=== PATIENT | male | born 1940 | race Caucasian/White ===

== ENCOUNTER 2018-10-22 05:43 | Emergency (ER) | payer OTHER ==
--- OUTSIDE RECORDS SUMMARY | 2018-10-22 06:01 | XMS REPORT | Clinical Summary ---
:1940 Author Organization [facility] Address [address] [place] [address] Care Team Providers Name Role Phone Debbi Duenas MD Primary Care Provider Allergies Active Allergy Reactions Severity Noted Date Comments No Known Drug Allergies 06/23/2016 Medications Medication Sig Dispensed Refills Start Date End Date Status atorvastatin TK 1 T PO QD 1 07/19/2016 Active (LIPITOR) 20 MG tablet clonIDINE TK 1 T PO BID 0 08/12/2016 Active (CATAPRES) 0.1 MG tablet amIODarone Take 200 mg 0 Active (PACERONE) 200 MG by mouth tablet daily. metFORMIN XR TK 1 T PO QD 3 01/26/2017 Active (GLUCOPHAGE-XR) 500 mg 24 hr tablet metoprolol TK 1 T PO QD 3 02/27/2017 Active succinate XL (TOPROL-XL) 100 mg 24 hr tablet memantine-donepezil TAKE 1 90 each 1 09/08/2017 Active (NAMZARIC) 28-10 mg CAPSULE BY capsule,sprinkle,ER MOUTH EVERY 24hr DAY sertraline (ZOLOFT) Take 1 tablet 90 tablet 1 09/08/2017 Active 100 MG tablet (100 mg total) by mouth once daily. sertraline (ZOLOFT) Take 2 60 tablet 3 11/11/2017 11/11/2018 Active 25 MG tablet tablets (50 mg total) by mouth daily. QUEtiapine Take 4 360 tablet 1 03/09/2018 Active (SEROquel) 25 MG tablets (100 tablet mg total) by mouth nightly. sertraline (ZOLOFT) TAKE 1 TABLET 90 tablet 0 04/14/2018 Active 100 MG tablet BY MOUTH DAILY QUEtiapine Take 1 tablet 30 tablet 1 11/11/2017 11/11/2017 Discontinued (SEROquel) 25 MG (25 mg total) tablet by mouth nightly for 30 days. QUEtiapine TAKE 1 TABLET 90 tablet 1 11/11/2017 03/09/2018 Discontinued (SEROquel) 25 MG BY MOUTH tablet EVERY NIGHT AT BEDTIME Active Problems Problem Noted Date Abdominal pain 06/23/2016 Malignant tumor of prostate 06/23/2016 Memory impairment 06/23/2016 Urge incontinence of urine 06/23/2016 Urinary incontinence 06/23/2016 Encounters Date Type Specialty Care Team Description 04/14/2018 Refill Neurology Liudmila Subramanian MD 04/05/2018 Telephone Neurology Debbi Duenas MD 03/09/2018 Office Visit Neurology Liudmila Subramanian Memory impairment ( Primary Dx); MD Shahla Dementia with behavioral disturbance, unspecified dementia type; Agitation 01/27/2018 Telephone Neurology Liudmila Subramanian MD 01/06/2018 Office Visit Neurology Liudmila Subramanian Memory impairment ( Primary Dx); MD Shahla Dementia with behavioral disturbance, unspecified dementia type 11/11/2017 Office Visit Neurology Liudmila Subramanian Memory impairment ( Primary Dx); MD Shahla Dementia with behavioral disturbance, unspecified dementia type 11/11/2017 Refill Neurology Liudmila Subramanian MD after 10/21/2017 Immunizations Name Dates Previously Given Next Due Pneumococcal Conjugate 13-Valent 10/29/2016 Family History Medical History Relation Name Comments Heart disease Mother Relation Name Status Comments Mother (Age 93) Social History Tobacco Use Types Packs/Day Years Used Date Never Smoker Alcohol Use Drinks/Week oz/Week Comments No Sex Assigned at Date Recorded Not on file Job Start Date Occupation Industry Not on file Not on file Not on file Travel History Travel Start Travel End No recent travel history available. Last Filed Vital Signs Vital Sign Reading Time Taken Blood Pressure 170/71 03/09/2018 10:05 AM CDT Pulse 76 03/09/2018 10:05 AM CDT Temperature - - Respiratory Rate - - Oxygen Saturation - - Inhaled Oxygen Concentration - - Weight 103 kg (227 lb) 11/11/2017 10:30 AM [employer] Height - - Body Mass Index 31 11/11/2017 10:30 AM [employer] Plan of Treatment Health Maintenance Due Date Last Done Comments SHINGLES VACCINES (1 of 2) 1988 PNEUMOCOCCAL POLYSACCHARIDE VACCINE AGE 65 AND OVER 2003 INFLUENZA VACCINE 04/21/2018 PNEUMOCOCCAL-13 Completed 10/29/2016 Results Not on fileafter 10/21/2017 Insurance Payer Benefit Plan / Group Subscriber ID Type Phone Address MEDICARE MEDICARE PART A AND B xxxxxxxxxx Medicare [place], [place] AARP AARP SUPPLEMENT xxxxxxxxxxx Commercial Advance Directives Patient has advance care planning documents on file. For more information, please contact:Juventino Galindo[address] [place] [address]
[2018-10-22 06:23] LABS: Absolute Lymphocytes (CBC) 2.1 K/uL (0.7-4.9); Absolute Monocytes 0.9 K/uL (0.1-1.3); Absolute Neutrophil 2.7 K/uL (1.8-8.0); Basophils % 0.3 % (0-1.3); Eosinophils % 5.7 % (0-4.4); Lymphocytes % 34.7 % (15.3-44.8); MPV 7.9 fL (7.6-11.3); Monocytes % 14.3 % (3.3-12.3); RBC Red Blood Cell Count 4.67 M/uL (4.33-5.43)
[2018-10-22] MEDS ORDERED: NA CHLORIDE 0.9% 1,000 ML ONE (06:29)
[2018-10-22] MEDS ORDERED: ACETAMINOPHEN 500 MG TAB ONE (06:33)
[2018-10-22 06:41] LABS: Protime INR 1.01
[2018-10-22 06:42] LABS: ALT/SGPT 21 U/L (12-78); AST/SGOT 16 U/L (15-37); Albumin 3.7 g/dL (3.4-5.0); Alkaline Phosphatase 67 U/L (45-117); BUN Blood Urea Nitrogen 25 mg/dL (7-18); Bicarbonate 25 mmol/L (21-32); Bilirubin Direct 0.1 mg/dL (0-0.2); Bilirubin Total 0.5 mg/dL (0.2-1.0); Glucose Level 130 mg/dL (74-106); Magnesium 2.4 mg/dL (1.8-2.4); NT PRO-BNP 67 pg/mL (<450); Potassium 4.1 mmol/L (3.5-5.1); Protein, Total 7.6 g/dL (6.4-8.2); Sodium Level 138 mmol/L (136-145); Troponin (Emerg Dept Use Only) < 0.02 ng/mL (0.0-0.045)
--- NOTE | 2018-10-22 08:29 | RAD REPORT ---
EXAM DESCRIPTION: CT - Head C Spine Cap Wo Con - 10/22/2018 8:04 am CLINICAL HISTORY: Dementia, fall, head, neck, chest and abdomen injury COMPARISON: None. TECHNIQUE: Axial [address] head images were obtained. Axial [address] cervical spine images were obtain ed with sagittal and coronal reconstruction images reviewed. Axial 5 mm images of the chest, abdomen and pelvis were obtained. All CT scans are performed using dose optimization technique as appropriate and may include automated exposure control or mA/KV adjustment according to patient size. FINDINGS: No intracranial hemorrhage, mass or edema. No midline shift or abnormal fluid collection. Mastoid air cells and paranasal sinuses are clear. No skull fracture. Patient has underlying moderat e atrophy and chronic ischemic change. Ventricles are in proportion. Dense arterial tree calcificatio ns are present. Cervical bodies are normal in height and alignment. No fracture or acute bone finding.C5-6 disc space narrowing present. Endplate spurs and facet hypertrophic degenerative changes are present scattered throughout the cervical spine. No canal stenosis or critical degree of foraminal stenosis.No preverte bral soft tissue thickening or paraspinal mass.Central canal detail is inherently limited on CT imagi ng. CT chest shows no pneumothorax, pulmonary contusion or pleural fluid collection. No mediastinal hem atoma and the aorta and pulmonary arteries are unremarkable. No chest will mass or abnormal axillary finding. No displaced rib fracture or other significant bony finding. CT abdomen and pelvis show no injury to solid abdominal viscera. No acute gallbladder or biliary tree finding. Punctate gallstones layer in the dependent portion of the gallbladder. No bowel injury or s ignificant finding. No free air, free fluid or abnormal stranding. No hernia, mass or bulky lymphaden opathy. No urinary bladder abnormality. A 7.5 centimeter upper pole right renal cyst is present. A 2 .5 centimeter cyst is present in the central right kidney. Prostatectomy surgical changes are present. Ing inguinal hernia surgical repairs are noted. There is some remnant right inguinal fat filled hernia. Disc and bony degenerative changes are present. No compression fracture or pathologic bone process se en. No soft tissue mass or hematoma. IMPRESSION: Atrophy and chronic ischemic changes with no acute intracranial finding. Cervical spine degenerative change with no acute finding. Central canal detail is inherently limited. No significant CT Chest finding. No significant CT Abdomen and Pelvis finding. Scattered bony degenerative change without an acute bone process identifiable.
--- NOTE | 2018-10-22 08:38 | ER ---
Nurse's Notes [facility] Name: Daniel Granados Age: 78 yrs Sex: Male : 1940 Arrival Date: 10/22/2018 Time: 05:44 Bed 19 Private MD: Diagnosis: Fall due to bumping against object;Dementia in other diseases classified elsewhere;Unspecified kidney failure Presentation: 10/22 05:51 Presenting complaint: EMS states: they were toned out for report of pt found lying on bb the ground unknown amount of time and pt shaking, pt is A\T\O x 1 which is his baseline. Transition of care: patient was received from another setting of care (long-term care facility), [facility]. Onset of symptoms was October 22, 2018. Risk Assessment: Do you want to hurt yourself or someone else? Patient reports no desire to harm self or others. Initial Sepsis Screen: Does the patient meet any 2 criteria? No. Patient's initial sepsis screen is negative. Does the patient have a suspected source of infection? No. Patient's initial sepsis screen is negative. Care prior to arrival: None. 05:51 Method Of Arrival: EMS: [facility] 05:51 Acuity: MIS 2 06:06 Mechanism of Injury: possible fall injury. Trauma event details: Injury occurred in the [facility], Injury occurred: in an institution. Injury occurred: October 22, 2018. Triage Assessment: 06:00 General: Appears in no apparent distress. uncomfortable, Behavior is calm, appropriate cc3 for age. Pain: Complains of pain in generalized. EENT: No signs and/or symptoms were reported regarding the EENT system. Neuro: Level of Consciousness is awake, alert. Cardiovascular: Patient's skin is warm and dry. Respiratory: Airway is patent Respiratory effort is even, unlabored, Respiratory pattern is regular, symmetrical. GI: Abdomen is round obese. : No signs and/or symptoms were reported regarding the genitourinary system. Derm: Wound noted left upper arm Bruising that is dark purple, on right midline antecubital area from EMS attempted IV cannulation. Musculoskeletal: Circulation, motion, and sensation intact. Range of motion: limited in lower limbs. Trauma Activation: Alert Physician: ED Physician; Name: Henrique; Notified At: 05:42; Arrived At: 05:42 Physician: General Surgeon; Name: ; Notified At: 05:42; Arrived At: Physician: Radiology; Name: Court; Notified At: 05:42; Arrived At: 05:45 Physician: Respiratory; Name: ; Notified At: 05:42; Arrived At: Physician: Lab; Name: ; Notified At: 05:42; Arrived At: Historical: - Allergies: 06:01 No Known Allergies; bb - Home Meds: 06:01 cyanocobalamin (vitamin B-12) 1,000 mcg/mL injection soln 1 mL once moly [Active]; bb amlodipine 10 mg tab 1 tab once daily [Active]; divalproex 500 mg oral TbEC 1 tab 2 times per day [Active]; fluoxetine 20 mg Oral cap 1 cap once daily [Active]; folic acid 1 mg oral tab 1 tab once daily [Active]; vit B-1 [Active]; Healthy Eyes SuperVision [id number],320-226-200 zrob-di-degm oral cap daily [Active]; lisinopril 10 mg Oral tab 1 tab once daily [Active]; memantine 10 mg oral tab 1 tab 2 times per day [Active]; quetiapine 100 mg oral tab 1 tab nightly [Active]; clonidine HCl 0.1 mg Oral tab 1 tab 2 times per day [Active]; lorazepam 1 mg Oral tab 1 tab four times a day [Active]; - PMHx: 06:01 Alzheimers; Dementia; Depression; Hypertension; bb - Immunization history:: Adult Immunizations unknown. - Social history:: Smoking status: unknown. - Ebola Screening: : No symptoms or risks identified at this time. - Family history:: not pertinent. Screenin:00 Abuse screen: Denies threats or abuse. Denies injuries from another. Nutritional cc3 screening: No deficits noted. Tuberculosis screening: No symptoms or risk factors identified. Fall Risk Ambulatory Aid- None/Bed Rest/Nurse Assist (0 pts). Gait- Weak (10 pts.). Mental Status- Overestimates/Forgets Limitations (15 pts.). Primary Survey: 06:03 NO uncontrolled hemorrhage observed. A: The patient is alert. Airway: patent. bb Breathing/Chest: Respiratory pattern: regular, Respiratory effort: spontaneous, unlabored. Circulation: Heart tones present. Disability Alert. Exposure/Environment: There is no evidence of uncontrolled external bleeding. A warming method has been applied: A warm blanket has been provided to the patient. 06:15 Reassessment Airway Airway Patent Breathing/Chest Respiratory pattern Regular cc3 Respiratory effort Spontaneous Unlabored Circulation Heart tones Present Disability Alert. Secondary Survey: 06:03 HEENT: No deficits noted. Gastrointestinal: No deficits noted. Musculoskeletal: bb Capillary refill < 3 seconds. Assessment: 06:00 General: see triage assessment. cc3 06:45 Reassessment: Patient appears in no apparent distress at this time. Patient and/or cc3 family updated on plan of care and expected duration. Pain level reassessed. 07:10 Reassessment: Patient appears in no apparent distress at this time. Patient and/or em family updated on plan of care and expected duration. Pain level reassessed. family at bedside, pending results for patient, pt awake oriented to self, denies pain at this time. 08:41 Reassessment: pt changed and cleaned, new gown placed. em 08:45 Reassessment: I agree with previous assessment. hb 09:05 Reassessment: Patient appears in no apparent distress at this time. report called to em Chace Christine, will arrange transport. 09:18 Reassessment: Patient appears in no apparent distress at this time. assisted pt into em wheelchair and transported by Chace Christine. Vital Signs: 06:01 BP 149 / 66; Pulse 71; Resp 18 S; Temp 97.6(O); Pulse Ox 98% on R/A; Weight 90.72 kg bb (R); Height 6 ft. 3 in. (190.50 cm) (R); 07:10 BP 136 / 71; Pulse 66; Resp 20; Pulse Ox 95% on R/A; em 08:08 BP 143 / 86; Pulse 63; Resp 20; Temp 97.8(O); Pulse Ox 96% on R/A; 5 06:01 Body Mass Index 25.00 (90.72 kg, 190.50 cm) bb Saxton Coma Score: 06:03 Eye Response: spontaneous(4). Verbal Response: oriented(5). Motor Response: obeys bb commands(6). Total: 15. Trauma Score (Adult): 06:03 Eye Response: spontaneous(1); Verbal Response: oriented(1); Motor Response: obeys bb commands(2); Systolic BP: > 89 mm Hg(4); Respiratory Rate: 10 to 29 per min(4); Saxton Score: 15; Trauma Score: 12 ED Course: 05:44 Patient arrived in ED. al2 05:44 Doron Duenas MD is Attending Physician. [facility] 05:53 Triage completed. bb 05:54 Sarah Mcdonald is Primary Nurse. cc3 06:01 Arm band placed on Patient placed in an exam room, on a stretcher, on pulse oximetry. bb 06:03 Patient has correct armband on for positive identification. Call light in reach. Side bb rails up X2. 06:03 Patient maintains SpO2 saturation greater than 95% on room air. bb 06:09 Thermoregulation: warm blanket given to patient. bb 06:10 Inserted saline lock: 20 gauge in right antecubital area, using aseptic technique. cc3 Blood collected. 06:13 X-ray completed. Portable x-ray completed in exam room. Patient tolerated procedure kw well. 06:15 XRAY Chest (1 view) In Process Unspecified. EDMS 07:00 Report given to BRIAN Huertas. cc3 07:14 Aleksandar Sarah LVN is Primary Nurse. em 08:05 CT Traumagram (Head C Spine CAP wo con) In Process Unspecified. EDMS 09:08 No provider procedures requiring assistance completed. IV discontinued, intact, em bleeding controlled, No redness/swelling at site. Pressure dressing applied. Administered Medications: 06:30 Drug: NS 0.9% 1000 ml Route: IV; Rate: 125 ml/hr; Site: right antecubital; cc3 09:00 Follow up: IV Status: Order to discontinue infusion; IV Intake: 200ml em 06:45 Not Given (patient's daughter refused and wants stronger pain medicine): Tylenol 1000 cc3 mg PO once Intake: 06:03 PO: 0ml; Total: 0ml. bb 09:00 IV: 200ml; Total: 200ml. em Outcome: 08:38 Discharge ordered by . kb 09:08 Discharged to [facility]. em 09:08 Condition: good 09:08 Discharge instructions given to family, [facility], Instructed on discharge instructions, follow up and referral plans. Demonstrated understanding of instructions, follow-up care. 09:19 Patient left the ED. em Signatures: Dispatcher [employer] Josy Valdez, MANAGER ENVIRONMENTAL-C MANAGER ENVIRONMENTAL-CkDoron Cross MD MD cha Munoz, Edgar, ARCH SUPPORT TECHNICIAN ARCH SUPPORT TECHNICIAN em Mattie Orr, RN RN Sheila Foss Heather, RN RN hb Martinez, Lashell 5 Tamra, Naima al2 Sarah Mcdonald cc3 Corrections: (The following items were deleted from the chart) 07:05 06:00 Derm: Wound noted left upper arm cc3 cc3 07:27 07:10 Reassessment: Patient appears in no apparent distress at this time. Patient em and/or family updated on plan of care and expected duration. Pain level reassessed. em 08:59 07:10 Reassessment: Patient appears in no apparent distress at this time. Patient em and/or family updated on plan of care and expected duration. Pain level reassessed. family at bedside, pending results for patient em
--- NOTE | 2018-10-22 08:39 | EDPHYS ---
Physician Documentation [facility] Name: Daniel Granados Age: 78 yrs Sex: Male : 1940 Arrival Date: 10/22/2018 Time: 05:44 Bed 19 Private MD: ED Physician Doron Duenas HPI: 10/22 06:03 This 78 yrs old Unknown Male presents to ER via EMS with complaints of fall, ams. sp 06:03 Details of fall: The patient fell from an upright position, while walking. Onset: The sp symptoms/episode began/occurred just prior to arrival, this morning. Associated injuries: The patient sustained no obvious injury. Severity of symptoms: At their worst the symptoms were in the emergency department the symptoms have improved. The patient has experienced similar episodes in the past, a few times. Historical: - Allergies: 06:01 No Known Allergies; bb - Home Meds: 06:01 cyanocobalamin (vitamin B-12) 1,000 mcg/mL injection soln 1 mL once moly [Active]; bb amlodipine 10 mg tab 1 tab once daily [Active]; divalproex 500 mg oral TbEC 1 tab 2 times per day [Active]; fluoxetine 20 mg Oral cap 1 cap once daily [Active]; folic acid 1 mg oral tab 1 tab once daily [Active]; vit B-1 [Active]; Healthy Eyes SuperVision [phone] [id number] oral cap daily [Active]; lisinopril 10 mg Oral tab 1 tab once daily [Active]; memantine 10 mg oral tab 1 tab 2 times per day [Active]; quetiapine 100 mg oral tab 1 tab nightly [Active]; clonidine HCl 0.1 mg Oral tab 1 tab 2 times per day [Active]; lorazepam 1 mg Oral tab 1 tab four times a day [Active]; - PMHx: 06:01 Alzheimers; Dementia; Depression; Hypertension; bb - Immunization history:: Adult Immunizations unknown. - Social history:: Smoking status: unknown. - Ebola Screening: : No symptoms or risks identified at this time. - Family history:: not pertinent. ROS: 06:03 Constitutional: Negative for fever, chills, and weight loss, Eyes: Negative for injury, sp pain, redness, and discharge, ENT: Negative for injury, pain, and discharge, Neck: Negative for injury, pain, and swelling, Cardiovascular: Negative for chest pain, palpitations, and edema, Respiratory: Negative for shortness of breath, cough, wheezing, and pleuritic chest pain, Abdomen/GI: Negative for abdominal pain, nausea, vomiting, diarrhea, and constipation, Back: Negative for injury and pain, : Negative for injury, bleeding, discharge, and swelling, MS/Extremity: Negative for injury and deformity, Skin: Negative for injury, rash, and discoloration, Neuro: Negative for headache, weakness, numbness, tingling, and seizure, Psych: Negative for depression, anxiety, suicide ideation, homicidal ideation, and hallucinations, Allergy/Immunology: Negative for hives, rash, and allergies, Endocrine: Negative for neck swelling, polydipsia, polyuria, polyphagia, and marked weight changes, Hematologic/Lymphatic: Negative for swollen nodes, abnormal bleeding, and unusual bruising. Exam: 06:03 Constitutional: This is a well developed, well nourished patient who is awake, alert, sp and in no acute distress. Head/Face: Normocephalic, atraumatic. Eyes: Pupils equal round and reactive to light, extra-ocular motions intact. Lids and lashes normal. Conjunctiva and sclera are non-icteric and not injected. Cornea within normal limits. Periorbital areas with no swelling, redness, or edema. ENT: Nares patent. No nasal discharge, no septal abnormalities noted. Tympanic membranes are normal and external auditory canals are clear. Oropharynx with no redness, swelling, or masses, exudates, or evidence of obstruction, uvula midline. Mucous membranes moist. Neck: Trachea midline, no thyromegaly or masses palpated, and no cervical lymphadenopathy. Supple, full range of motion without nuchal rigidity, or vertebral point tenderness. No Meningismus. Chest/axilla: Normal chest wall appearance and motion. Nontender with no deformity. No lesions are appreciated. Cardiovascular: Regular rate and rhythm with a normal S1 and S2. No gallops, murmurs, or rubs. Normal PMI, no JVD. No pulse deficits. Respiratory: Lungs have equal breath sounds bilaterally, clear to auscultation and percussion. No rales, rhonchi or wheezes noted. No increased work of breathing, no retractions or nasal flaring. Abdomen/GI: Soft, non-tender, with normal bowel sounds. No distension or tympany. No guarding or rebound. No evidence of tenderness throughout. Back: No spinal tenderness. No costovertebral tenderness. Full range of motion. Male : Normal genitalia with no discharge or lesions. Skin: Warm, dry with normal turgor. Normal color with no rashes, no lesions, and no evidence of cellulitis. Vital Signs: 06:01 BP 149 / 66; Pulse 71; Resp 18 S; Temp 97.6(O); Pulse Ox 98% on R/A; Weight 90.72 kg bb (R); Height 6 ft. 3 in. (190.50 cm) (R); 07:10 BP 136 / 71; Pulse 66; Resp 20; Pulse Ox 95% on R/A; em 08:08 BP 143 / 86; Pulse 63; Resp 20; Temp 97.8(O); Pulse Ox 96% on R/A; mh5 06:01 Body Mass Index 25.00 (90.72 kg, 190.50 cm) Ria Coma Score: 06:03 Eye Response: spontaneous(4). Verbal Response: oriented(5). Motor Response: obeys bb commands(6). Total: 15. Trauma Score (Adult): 06:03 Eye Response: spontaneous(1); Verbal Response: oriented(1); Motor Response: obeys bb commands(2); Systolic BP: > 89 mm Hg(4); Respiratory Rate: 10 to 29 per min(4); [place] Score: 15; Trauma Score: 12 MDM: 05:44 Patient medically screened. [facility] 07:30 Data reviewed: vital signs, nurses notes, lab test result(s), EKG, radiologic studies, [facility] CT scan, plain films. 10/22 06:03 Order name: Basic Metabolic Panel [facility] 10/22 06:03 Order name: CBC with Diff; Complete Time: 06:53 [facility] 10/22 06:03 Order name: LFT's [facility] 10/22 06:03 Order name: Magnesium; Complete Time: 06:53 [facility] 10/22 06:03 Order name: NT PRO-BNP [facility] 10/22 06:03 Order name: PT-INR; Complete Time: 06:53 [facility] 10/22 06:03 Order name: Troponin (emerg Dept Use Only); Complete Time: 06:53 [facility] 10/22 06:03 Order name: XRAY Chest (1 view) [facility] 10/22 06:03 Order name: Urine Culture [facility] 10/22 06:03 Order name: Depakote; Complete Time: 06:53 [facility] 10/22 06:04 Order name: Basic Metabolic Panel; Complete Time: 06:53 [facility] 10/22 06:04 Order name: Liver (Hepatic) Function; Complete Time: 06:53 [facility] 10/22 06:04 Order name: NT PRO-BNP; Complete Time: 06:53 [facility] 10/22 09:02 Order name: Urine Dipstick--Ancillary (enter results) 10/22 06:03 Order name: EKG; Complete Time: 06:04 [facility] 10/22 06:03 Order name: Cardiac monitoring; Complete Time: 06:34 [facility] 10/22 06:03 Order name: EKG - Nurse/Tech; Complete Time: 06:34 [facility] 10/22 06:03 Order name: IV Saline Lock; Complete Time: 06:34 [facility] 10/22 06:03 Order name: Labs collected and sent; Complete Time: 06:34 [facility] 10/22 06:03 Order name: O2 Per Protocol; Complete Time: 06:10 [facility] 10/22 06:03 Order name: O2 Sat Monitoring; Complete Time: 06:10 [facility] 10/22 06:03 Order name: Urine Dipstick-Ancillary (obtain specimen); Complete Time: 09:00 [facility] 10/22 06:53 Order name: CT Traumagram (Head C Spine CAP wo con); Complete Time: 08:37 [facility] Administered Medications: 06:30 Drug: NS 0.9% 1000 ml Route: IV; Rate: 125 ml/hr; Site: right antecubital; cc3 09:00 Follow up: IV Status: Order to discontinue infusion; IV Intake: 200ml em 06:45 Not Given (patient's daughter refused and wants stronger pain medicine): Tylenol 1000 cc3 mg PO once Disposition: 10/22/18 08:38 Discharged to Home. Impression: Fall due to bumping against object, Dementia in other diseases classified elsewhere, Unspecified kidney failure. - Condition is Stable. - Discharge Instructions: Dementia, Fall Prevention in the Home, [id number], Chronic Kidney Disease, Adult, Lsff-fp-Aske, Dementia, Yogk-qc-Wobo. - Medication Reconciliation Form, Thank You Letter form. - Follow up: Private Physician; When: 2 - 3 days; Reason: Recheck today's complaints, Continuance of care, Re-evaluation by your physician. - Problem is new. - Symptoms have improved. Signatures: Dispatcher [employer] EDDudley Prideistin, PAVING PLANT OPERATOR-C PAVING PLANT OPERATOR-Doron June MD MD cha Munoz, Edgar, STILL CLEANER STILL CLEANER em Mattie Orr RN RN bb Sarah Mcdonald cc3 Corrections: (The following items were deleted from the chart) 09:19 08:38 10/22/2018 08:38 Discharged to Home. Impression: Fall due to bumping against em object; Dementia in other diseases classified elsewhere; Unspecified kidney failure. Condition is Stable. Discharge Instructions: Dementia, Fall Prevention in the Home, Wzni-wk-Slux, Dementia, Gyny-fg-Zipa, Chronic Kidney Disease, Adult, Lnna-qs-Hsiy. Forms are Thank You Letter, Medication Reconciliation Form, Antibiotic Education, Prescription Opioid Use. Follow up: Private Physician; When: 2 - 3 days; Reason: Recheck today's complaints, Continuance of care, Re-evaluation by your physician. Problem is new. Symptoms have improved. kb
[2018-10-22 09:16] LABS: Urine Blood NEGATIVE (NEG); Urine Glucose NEGATIVE (NEG); Urine Protein NEGATIVE (NEG); Urine Specific Gravity 1.015 (1.005-1.030); Urine pH 6.5 (5.0-7.0)
--- NOTE | 2018-10-22 09:48 | RAD REPORT ---
EXAM DESCRIPTION: RAD - Chest Single View - 10/22/2018 6:15 am CLINICAL HISTORY: Fall, chest pain, hypertension, cough COMPARISON: None. TECHNIQUE: AP portable chest image was obtained 0610 hours . FINDINGS: No focal lung parenchymal process. There is mild prominence of the lung markings believed to be a mild baseline fibrosis. Heart and vasculature are normal. No measurable pleural effusion and no pneumothorax. No acute bony abnormality seen. No acute aortic findings suspected. IMPRESSION: No acute cardiopulmonary process. Mild fibrotic lung change.
--- NOTE | 2018-10-22 16:16 | EKG ---
Test Date: 2018-10-22 Test Time: 06:18:24 Director It Project: MICHELLE MEASUREMENT RESULTS: Intervals: Rate: 66 [place]: 186 QRSD: 84 QT: 424 QTc: 444 [place]: P: 40 [place]: 186 QRS: 53 T: 60 INTERPRETIVE STATEMENTS: Normal sinus rhythm Low voltage QRS Borderline ECG No previous ECG available for comparison Electronically Signed On 10-22-18 16:15:50 SPINAL SURGEON by Thad Dexter
== END 2018-10-22 09:19 | disposition home or self-care (01) ==
LOC: ER 05:43
DX: G30.9 Alzheimer's disease, unspecified (principal); F02.80 Dementia in other diseases classified elsewhere, unspecified severity, without behavioral disturbance, psychotic disturbance, mood disturbance, and anxiety; N19 Unspecified kidney failure; I10 Essential (primary) hypertension; F32.9 Major depressive disorder, single episode, unspecified; W19.XXXA Unspecified fall, initial encounter; Y93.01 Activity, walking, marching and hiking; Y92.9 Unspecified place or not applicable
CPT/HCPCS: 36415; 70450; 71045; 71250; 72125; 80048; 80076; 80164; 81003; 82962; 83735; 83880; 84484; 85025; 85610; 87086; 87088; 93005; 96360; 96361; 99284; J7030

== ENCOUNTER 2019-10-16 10:55 | Emergency (ER) | payer OTHER, MEDICARE ==
[2019-10-16 11:41] LABS: Absolute Lymphocytes (CBC) 1.1 K/uL (0.7-4.9); Basophils % 0.5 % (0-1.3); Lymphocytes % 12.7 % (15.3-44.8); MPV 7.9 fL (7.6-11.3); RBC Red Blood Cell Count 4.91 M/uL (4.33-5.43)
[2019-10-16 11:45] LABS: Protime INR 1.01
--- NOTE | 2019-10-16 11:58 | EKG ---
Test Date: 2019-10-16 Test Time: 11:24:15 [employer] Reserv[employer] Keeper: SEVERINO MEASUREMENT RESULTS: Intervals: Rate: 81 AL: 172 QRSD: 74 QT: 366 QTc: 425 [place]: P: 50 AL: 172 QRS: 61 T: 76 INTERPRETIVE STATEMENTS: Normal sinus rhythm Normal ECG Compared to ECG 10/22/2018 06:18:24 No significant changes Electronically Signed On 10-16-19 11:57:58 MICROWAVE RADIO TECHNICIAN by Thad Dexter
[2019-10-16 12:02] LABS: ALT/SGPT 26 U/L (12-78); AST/SGOT 18 U/L (15-37); Albumin 3.8 g/dL (3.4-5.0); Alkaline Phosphatase 63 U/L (45-117); BUN Blood Urea Nitrogen 16 mg/dL (7-18); Bicarbonate 31 mmol/L (21-32); Bilirubin Direct 0.2 mg/dL (0-0.2); Bilirubin Total 0.6 mg/dL (0.2-1.0); Glucose Level 140 mg/dL (74-106); Magnesium 2.3 mg/dL (1.8-2.4); NT PRO-BNP 156 pg/mL (<450); Potassium 4.5 mmol/L (3.5-5.1); Protein, Total 7.9 g/dL (6.4-8.2); Sodium Level 139 mmol/L (136-145); Troponin (Emerg Dept Use Only) < 0.02 ng/mL (0.0-0.045)
--- NOTE | 2019-10-16 12:09 | RAD REPORT ---
EXAM DESCRIPTION: CT - Head C Spine Mpr Wo Con - 10/16/2019 11:43 am CLINICAL HISTORY: Head and neck injury status post fall. Head and neck pain COMPARISON: October 2018 TECHNIQUE: Computed axial tomography of the head and cervical spine was obtained. Sagittal and coronal reconstruction was performed. All CT scans are performed using dose optimization technique as appropriate and may include automated exposure control or mA/KV adjustment according to patient size. FINDINGS: An intracranial bleed is not seen. The ventricles are normal in caliber. An extra-axial fl uid collection is not noted.Fluid within the visualized sinuses and mastoids is not seen A cervical fracture is not visualized. No dislocation is noted. IMPRESSION: No acute intracranial abnormality is seen. A cervical fracture is not visualized. If the patient continues to have symptoms to suggest intracra nial /spinal cord pathology then MRI would be recommended
--- NOTE | 2019-10-16 12:10 | RAD REPORT ---
EXAM DESCRIPTION: Chiquis Single View10/16/2019 11:53 am CLINICAL HISTORY: Chest pain COMPARISON: October 2018 FINDINGS: The lungs appear clear of acute infiltrate. The heart is normal size IMPRESSION: No acute abnormalities displayed
--- NOTE | 2019-10-16 12:56 | EDPHYS ---
Physician Documentation [facility] Name: Daniel Granados Age: 78 yrs Sex: Male : 1940 Arrival Date: 10/16/2019 Time: 11: Bed 4 Private MD: ED Physician Ralph Dominguez HPI: 10/16 16:07 This 78 yrs old Male presents to ER via Ambulatory with complaints of Chest kdr Wall Pain. 16:07 The patient or guardian reports chest pain that is located primarily in the anterior kdr chest wall, left. Onset: just prior to arrival. Associated signs and symptoms: The patient has no apparent associated signs or symptoms. The chest pain is described as The patient has dementia and is inconsistent with his story and exam. Severity of pain: At its worst the pain was very mild in the emergency department the pain Difficult to assess given his dementia. It is unknown whether or not the patient has had similar symptoms in the past. It is unknown whether or not the patient has recently seen a physician. Historical: - Allergies: 11:06 No Known Allergies; ss - PMHx: 11:06 Alzheimers; Dementia; Depression; Hypertension; prostate CA; ss - Immunization history:: Adult Immunizations up to date. - Coronavirus screen:: The patient has NOT traveled to [place], [place], or [place] in the past 14 days. Proceed with normal triage process as indicated. - Social history:: Smoking status: Patient denies any tobacco usage or history of. - Ebola Screening: : Patient denies exposure to infectious person Patient denies travel to an Ebola-affected area in the 21 days before illness onset. ROS: 16:07 Constitutional: Negative for fever, chills, and weight loss, Eyes: Negative for injury, kdr pain, redness, and discharge, Neck: Negative for injury, pain, and swelling, Cardiovascular: Negative for chest pain, palpitations, and edema, Respiratory: Negative for shortness of breath, cough, wheezing, and pleuritic chest pain, Abdomen/GI: Negative for abdominal pain, nausea, vomiting, diarrhea, and constipation, Back: Negative for injury and pain, MS/Extremity: Negative for injury and deformity, Skin: Negative for injury, rash, and discoloration, Neuro: Negative for headache, weakness, numbness, tingling, and seizure activity. Psych: Negative for depression, anxiety, suicide ideation, homicidal ideation, and hallucinations, Allergy/Immunology: Negative for hives, rash, and allergies, Endocrine: Negative for neck swelling, polydipsia, polyuria, polyphagia, and marked weight changes, Hematologic/Lymphatic: Negative for swollen nodes, abnormal bleeding, and unusual bruising. Exam: 16:07 Constitutional: This is a well developed, well nourished patient who is awake, alert, kdr and in no acute distress. Head/Face: Normocephalic, atraumatic. Eyes: Pupils equal round and reactive to light, extra-ocular motions intact. Lids and lashes normal. Conjunctiva and sclera are non-icteric and not injected. Cornea within normal limits. Periorbital areas with no swelling, redness, or edema. Neck: Trachea midline, no thyromegaly or masses palpated, and no cervical lymphadenopathy. Supple, full range of motion without nuchal rigidity, or vertebral point tenderness. No Meningismus. Chest/axilla: Normal chest wall appearance and motion. Nontender with no deformity. No lesions are appreciated. Cardiovascular: Regular rate and rhythm with a normal S1 and S2. No gallops, murmurs, or rubs. Normal PMI, no JVD. No pulse deficits. Respiratory: Lungs have equal breath sounds bilaterally, clear to auscultation and percussion. No rales, rhonchi or wheezes noted. No increased work of breathing, no retractions or nasal flaring. Abdomen/GI: Soft, non-tender, with normal bowel sounds. No distension or tympany. No guarding or rebound. No evidence of tenderness throughout. Back: No spinal tenderness. No costovertebral tenderness. Full range of motion. Skin: Warm, dry with normal turgor. Normal color with no rashes, no lesions, and no evidence of cellulitis. MS/ Extremity: Pulses equal, no cyanosis. Neurovascular intact. Full, normal range of motion. Neuro: Awake and alert, GCS 15, oriented to person, place, time, and situation. Cranial nerves II-XII grossly intact. Motor strength 5/5 in all extremities. Sensory grossly intact. Cerebellar exam normal. Normal gait. Psych: Awake, alert, with orientation to person, place and time. Behavior, mood, and affect are within normal limits. 19:27 ECG was reviewed by the Attending Physician. kdr Vital Signs: 11:06 BP 144 / 81; Pulse 72; Resp 18; Temp 97.3(TE); Pulse Ox 100% on R/A; Height 6 ft. 3 in. ss (190.50 cm); 12:23 BP 145 / 86; Pulse 84; Resp 19; Pulse Ox 99% on R/A; ae4 MDM: 12:56 Patient medically screened. kdr 16:07 Data reviewed: vital signs, nurses notes, lab test result(s), radiologic studies. kdr Counseling: I had a detailed discussion with the patient and/or guardian regarding: the historical points, exam findings, and any diagnostic results supporting the discharge/admit diagnosis, lab results, radiology results, the need for outpatient follow up. 10/16 11:20 Order name: Basic Metabolic Panel; Complete Time: [facility] 10/16 11:20 Order name: CBC with Diff; Complete Time: [facility] 10/16 11:20 Order name: LFT's; Complete Time: : [facility] 10/16 11:20 Order name: Magnesium; Complete Time: [facility] 10/16 11:20 Order name: NT PRO-BNP; Complete Time: : [facility] 10/16 11:20 Order name: PT-INR; Complete Time: : [facility] 10/16 11:20 Order name: Troponin (emerg Dept Use Only); Complete Time: : [facility] 10/16 11:20 Order name: XRAY Chest (1 view); Complete Time: : [facility] 10/16 11:20 Order name: EKG; Complete Time: : [facility] 10/16 11:20 Order name: Cardiac monitoring; Complete Time: : [facility] 10/16 11:20 Order name: EKG - Nurse/Tech; Complete Time: 11: [facility] 10/16 11:20 Order name: IV Saline Lock; Complete Time: [facility] 10/16 11:20 Order name: Labs collected and sent; Complete Time: [facility] 10/16 11:20 Order name: CT Head C Spine; Complete Time: : [facility] 10/16 11:20 Order name: O2 Per Protocol; Complete Time: : [facility] 10/16 11:20 Order name: O2 Sat Monitoring; Complete Time: [facility] EC:27 Rate is 81 beats/min. Rhythm is regular, Normal Sinus Rhythm with No ectopy. QRS [place] kdr is Normal. CO interval is normal. Clinical impression: Normal ECG. Administered Medications: No medications were administered Disposition: 10/16/19 12:56 Discharged to Home. Impression: Other slipping, tripping and stumbling and falls, Chest pain, unspecified. - Condition is Stable. - Discharge Instructions: Chest Wall Pain, Qsfx-cf-[id number], Nonspecific Chest Pain, Lhwh-tl-[id number], Fall Prevention in the Home, [id number]. - Medication Reconciliation Form, Thank You Letter form. - Follow up: Private Physician; When: 2 - 3 days; Reason: If symptoms return, Further diagnostic work-up, Recheck today's complaints, Continuance of care, Re-evaluation by your physician. - Problem is new. - Symptoms are resolved. Signatures: Dispatcher [employer] EDMS Ralph Dominguez MD MD kdr Fatemeh Mendoza RN RN ss Ed Garcia RN RN ae4 Corrections: (The following items were deleted from the chart) 13:08 12:56 10/16/2019 12:56 Discharged to Home. Impression: Other slipping, tripping and ae4 stumbling and falls; Chest pain, unspecified. Condition is Stable. Forms are Medication Reconciliation Form, Thank You Letter, Antibiotic Education, Prescription Opioid Use. Follow up: Private Physician; When: 2 - 3 days; Reason: If symptoms return, Further diagnostic work-up, Recheck today's complaints, Continuance of care, Re-evaluation by your physician. Problem is new. Symptoms are resolved. kdr
--- NOTE | 2019-10-16 12:56 | ER ---
Nurse's Notes [facility] Name: Daniel Granados Age: 78 yrs Sex: Male : 1940 Arrival Date: 10/16/2019 Time: 11: Bed 4 Private MD: Diagnosis: Other slipping, tripping and stumbling and falls;Chest pain, unspecified Presentation: 10/16 11:01 Presenting complaint: EMS states: pain to L side of chest/ chest wall. Unknown when ss pain began or whether or not there was an injury as patient is a poor historian due to dementia. Transition of care: patient was not received from another setting of care. Onset of symptoms is unknown. Risk Assessment: Do you want to hurt yourself or someone else? Patient reports no desire to harm self or others. Initial Sepsis Screen: Does the patient meet any 2 criteria? No. Patient's initial sepsis screen is negative. Does the patient have a suspected source of infection? No. Patient's initial sepsis screen is negative. Care prior to arrival: None. 11:01 Method Of Arrival: Ambulatory ss 11: Acuity: MIS 3 ss Triage Assessment: 11:19 General: Appears uncomfortable, Behavior is calm, cooperative. Pain: Complains of pain ae4 in left clavicle, anterior aspect of left upper chest, diaphragm, left lateral anterior chest, left lateral posterior chest and left breast Pain does not radiate. Patient states movement aggravates pain. Neuro: Level of Consciousness is awake, alert, obeys commands, Oriented to person. Cardiovascular: Heart tones S1 S2 present Patient's skin is warm and dry. Respiratory: Airway is patent Respiratory effort is even, unlabored, Respiratory pattern is regular, symmetrical. Historical: - Allergies: 11:06 No Known Allergies; ss - PMHx: 11:06 Alzheimers; Dementia; Depression; Hypertension; prostate CA; ss - Immunization history:: Adult Immunizations up to date. - Coronavirus screen:: The patient has NOT traveled to [place], [place], or [place] in the past 14 days. Proceed with normal triage process as indicated. - Social history:: Smoking status: Patient denies any tobacco usage or history of. - Ebola Screening: : Patient denies exposure to infectious person Patient denies travel to an Ebola-affected area in the 21 days before illness onset. Screenin:36 Abuse screen: Denies threats or abuse. Denies injuries from another. Nutritional jl7 screening: No deficits noted. Tuberculosis screening: No symptoms or risk factors identified. Fall Risk Fall in past 12 months (25 points). IV access (20 points). Total Osborn Fall Scale indicates High Risk Score (45 or more points). Fall prevention measures have been instituted. Side Rails Up X 2 Placed Close to Nursing Station Frequent Obs/Assessments Occuring Family Present and informed to notify staff if the need to leave the bedside As available patient and family educated on Fall Prevention Program and Strategies. Assessment: 11:00 Pain: Pain began It is unknown when the pain started. ae4 11:36 Reassessment: Pt's daughter, Zelda, at bedside. jl7 12:22 Reassessment: Patient appears in no apparent distress at this time. Daughter at bedside.ae4 Vital Signs: 11:06 BP 144 / 81; Pulse 72; Resp 18; Temp 97.3(TE); Pulse Ox 100% on R/A; Height 6 ft. 3 in. ss (190.50 cm); 12:23 BP 145 / 86; Pulse 84; Resp 19; Pulse Ox 99% on R/A; ae4 ED Course: 11:01 Patient arrived in ED. ss 11:03 Jh Mcclellan, RN is Primary Nurse. jl7 11:03 Triage completed. ss 11:06 Arm band placed on right wrist. ss 11:12 Ralph Dominguez MD is Attending Physician. kdr 11:15 Ed Garcia, LICHA is Primary Nurse. ae4 11:21 Placed in gown. Bed in low position. Call light in reach. Side rails up X2. Cardiac ae4 monitor on. Pulse ox on. NIBP on. Warm blanket given. 11:21 Patient maintains SpO2 saturation greater than 95% on room air. ae4 11:24 EKG done, by ED staff, reviewed by Ralph Dominguez MD. jb1 11:36 Initial lab(s) drawn, by me, sent to lab. Inserted saline lock: 20 gauge in left jl7 antecubital area, using aseptic technique. Blood collected. 11:43 CT Head C Spine In Process Unspecified. EDMS 11:44 CT completed. Patient tolerated procedure well. Patient moved back from CT. mw3 11:51 Patient moved to radiology via stretcher. bq 11:52 XRAY Chest (1 view) In Process Unspecified. EDMS 13:06 Ed Garcia, RN is Primary Nurse. ae4 13:07 No provider procedures requiring assistance completed. IV discontinued, intact, ae4 bleeding controlled, No redness/swelling at site. Pressure dressing applied. Administered Medications: No medications were administered Outcome: 12:56 Discharge ordered by . kdr 13:07 Discharged to home via wheelchair, with family. ae4 13:07 Condition: stable 13:07 Discharge instructions given to family, Instructed on discharge instructions, follow up and referral plans. Demonstrated understanding of instructions. 13:08 Patient left the ED. ae4 Signatures: Dispatcher [employer] EDMS Polo Medina jb1 Ralph Dominguez MD MD kdr Quilty, Betty bq Smirch, Shelby RN RN Jh Mcclellan RN RN jl7 Goldie Smith 3 Ed Garcia, RN RN ae4
[2019-10-16 13:14] VITALS: TEMP 97.3
[2019-10-16 13:16] VITALS: BP 145/86; O2SAT 99
== END 2019-10-16 13:08 | disposition home or self-care (01) ==
LOC: ER 10:55
DX: R07.9 Chest pain, unspecified (principal); W01.0XXA Fall on same level from slipping, tripping and stumbling without subsequent striking against object, initial encounter; Y92.9 Unspecified place or not applicable
CPT/HCPCS: 36415; 70450; 71045; 72125; 80048; 80076; 83735; 83880; 84484; 85025; 85610; 93005; 99285